=== PATIENT | female | born 1955 | race Caucasian/White ===

== ENCOUNTER 2016-10-21 07:00 | Day surgery (SDC) | payer BC ==
[~2016-10-21] VITALS: Ht 157.5 cm; Wt 69.1 kg
[2016-10-21] MEDS ORDERED: LEVO50TA74 PO (07:33)
[2016-10-21] MEDS ORDERED: DICL25TA11 PO (07:33)
[2016-10-21] MEDS ORDERED: ESOM40CA PO (07:33)
[2016-10-21] MEDS ORDERED: MAGN200T PO (07:33)
[2016-10-21] MEDS ORDERED: SIMV5TAB50 PO (07:33)
[2016-10-21] MEDS ORDERED: CHOL400T10 PO (07:33)
[2016-10-21 07:35] VITALS: Ht 157.5 cm; Wt 69.1 kg
[2016-10-21 07:55] VITALS: BP 142/83; PULSE 89; RESP 16
--- NOTE | 2016-10-21 08:56 | OPPN ---
Date/Time of Note Date/Time of Note DATE: 10/21/16 TIME: 08:54 Operative Report Preoperative Diagnosis Colon cancer screening Postoperative Diagnosis Same Operation/Procedure Performed Colonoscopy with removal of small polyp from the rectum by jumbo biopsy forceps , 2 cold bites. Negative all the way into terminal ileum Provider: VIKTOR MURPHY MD Estimated blood loss: none Transfusion Required: no Specimen: none Grafts/Implants: none Complications: no VIKTOR MURPHY MD Oct 21, 2016 08:56
[2016-10-21] MEDS ORDERED: FENTAnyl 50 MCG/ML VIAL ONE (09:00)
[2016-10-21] MEDS ORDERED: MIDAZOLAM 1 MG/ML 2 ML INJ ONE ×2 (09:00)
--- NOTE | 2016-10-21 10:47 | GILP ---
DATE OF PROCEDURE: 10/21/2016 PROCEDURE PERFORMED: Colonoscopy. INDICATIONS FOR PROCEDURE: A 61-year-old female undergoing this procedure for screening colonoscopy. The risks of the procedure, related complications, anesthetic risk, alternatives discussed and informed consent was obtained. DESCRIPTION OF PROCEDURE: The patient was brought to the GI lab, sedated with Versed 3 mg, fentanyl 75 mg. after optimal sedation digital examination done. Sphincter tone was normal. External hemorrhoids seen. No mass was felt. The pediatric colonoscope passed with much ease into rectum, advanced slowly through sigmoid, descending, transverse colon all the way into cecum and finally into terminal ileum. Terminal ileum was normal up to 1 foot. The entire caput of the cecum was normal. Scope was withdrawn slowly thoroughly inspecting all the area. The recollection of some liquidy stool in the form of puddles at different angles precluding the visibility by 5 percent but grossly the preparation was good. Retroversion done. On retroversion, polyp was identified in the rectum and this polyp was maybe 7-8 mm in diameter. With a 3 Jumbo bite the whole polyp was removed. Bleeding was 0.1 cc and it stopped. The scope was removed with excellent patient tolerance. ASSESSMENT: 1. Polyp in the rectum, successfully removed by Jumbo biopsy forceps. 2. Mild diverticulosis. One solitary diverticulum identified. 3. Negative all the way into cecum. 4. Negative terminal ilium. 5. Negative retroversion. 6. Clarity was good and cleanliness was good. 7. Normal digital examination. PLAN: Stay on high-fiber diet. Surveillance will be based on the pathological findings of the polyp. Dictated By: Dixon Garcai MD /[email or web address]/lawanda /Document#: [id number] ; Primary
== END 2016-10-21 14:45 | disposition home or self-care (01) ==
LOC: GIL 07:00
PROVIDERS: ATTEND Internal Medicine Gastroenterology
DX: Z12.11 Encounter for screening for malignant neoplasm of colon (principal); E03.9 Hypothyroidism, unspecified; K62.1 Rectal polyp; K57.90 Diverticulosis of intestine, part unspecified, without perforation or abscess without bleeding; E78.5 Hyperlipidemia, unspecified
CPT/HCPCS: 45380; 88305; J2250; J3010; Z7610